=== PATIENT | female | born 1985 | race Caucasian/White ===

== ENCOUNTER 2016-07-26 11:39 | Emergency (ER) | payer SELFPAY ==
[~2016-07-26] VITALS: Ht 157.5 cm; Wt 66.0 kg
[2016-07-26 11:43] VITALS: BP 126/79; PULSE 79; RESP 16; TEMP 98.5; O2SAT 99
[2016-07-26] MEDS ORDERED: ALBUAER3 INH (12:14)
--- NOTE | 2016-07-26 12:14 | PD ---
HPI Chief Complaint: ENT Complaint Time Seen by Provider: 11:50 Travel History International Travel<30 days: No Contact w/Intl Traveler<30days: No Traveled to known affect area: No History of Present Illness HPI 30-year-old female with no significant past medical history presents emergency department for evaluation of sore throat and cough. She reports she developed a sore throat approximately 5-7 days ago. She then developed a cough 2 days ago and last night felt as if she was wheezing prompting her visit for evaluation today. She reports that the cough is dry. She denies any chest pain. She denies any fever or chills. She reports that last night was an isolated episode of coughing with wheezing. PFSH Past Medical History Medical History: Denies Significant Hx ?: Not LMP: CURRENTLY Social History Alcohol Use: No Tobacco Use: No Substance Use: No Allergies-Medications (Allergen,Severity, Reaction): Coded Allergies: No Known Allergies (Unverified , 07/26/16) Reported Meds & Prescriptions Reported Meds & Active Scripts Active Proair Hfa 8.5 GM Inh (Albuterol Sulfate) 90 Mcg/Act Aer 2 Puff INH Q4-6H PRN 108 mcg/actuation Review of Systems Except as stated in HPI: all other systems reviewed are Neg Physical Exam Narrative GENERAL: Alert, well-appearing female, nontoxic appearing SKIN: Focused skin assessment warm/dry. No rashes HEAD: Atraumatic. Normocephalic. EYES: Pupils equal and round. No scleral icterus. No injection or drainage. ENT: No nasal bleeding or discharge. Mucous membranes pink and moist. NECK: Trachea midline. No JVD. THROAT: Mild pharyngeal erythema. No tonsillar swelling or exudate. CARDIOVASCULAR: Regular rate and rhythm. No murmur appreciated. RESPIRATORY: No accessory muscle use. Clear to auscultation. Breath sounds equal bilaterally. No wheezes, rales, rhonchi. GASTROINTESTINAL: Abdomen soft, non-tender, nondistended. Hepatic and splenic margins not palpable. MUSCULOSKELETAL: No obvious deformities. No clubbing. No cyanosis. No edema. NEUROLOGICAL: Awake and alert. No obvious cranial nerve deficits. Motor grossly within normal limits. Normal speech. PSYCHIATRIC: Appropriate mood and affect; insight and judgment normal. Data Data Last Documented VS Vital Signs Date Time Temp Pulse Resp B/P Pulse Ox O2 Delivery O2 Flow Rate FiO2 5/30/17 11:43 98.5 79 16 126/79 99 MDM Medical Decision Making Medical Screen Exam Complete: Yes Emergency Medical Condition: Yes Differential Diagnosis URI, viral bronchitis, pneumonia Narrative Course This is a 30-year-old female who presents to the emergency department for evaluation of cough and sore throat. Patient reports that she has a nonproductive cough with an episode of wheezing last night that resolved after taking Mucinex. On exam the patient is well-appearing. Her lung sounds are clear bilaterally. There is no wheezing or rhonchi. She has mild erythema and apparent without exudate. Nasal congestion present. This is consistent with a viral URI and viral bronchitis. Patient was instructed to continue the Mucinex DM for cough she will be given an albuterol inhaler as needed for shortness of breath or wheezing. She was instructed to return should her symptoms worsen or she develops fever. Diagnosis Primary Impression: Viral bronchitis Referrals: Primary Care Physician Scripts Albuterol 8.5 GM Inh (Proair Hfa 8.5 GM Inh)90 Mcg/Act Aer2 Puff INH Q4-6H PRN ( SHORTNESS OF BREATH) #1 INHALER Ref 0 108 mcg/actuation Prov:Kasey Llanos 07/26/16 Disposition: 01 DISCHARGE HOME Condition: Stable Kasey Llanos July 26, 2016 12:14
== END 2016-07-26 12:30 | disposition home or self-care (01) ==
LOC: PHEFT 11:39
DX: J20.8 Acute bronchitis due to other specified organisms (principal)
CPT/HCPCS: 99283